=== PATIENT | male | born 1985 | race Hispanic/Latino ===

== ENCOUNTER 2017-09-04 21:18 | Emergency (ER) | payer BC ==
--- NOTE | 2017-09-04 21:53 | RAD ---
AP VIEW OF THE CHEST: 09/04/17 INDICATION: Chest pain. COMPARISON: Prior exam dated 01/18/11. FINDINGS: The lungs are clear. The cardiomediastinal silhouette is within normal limits. No acute osseous abnor mality is evident. IMPRESSION: No acute cardiopulmonary abnormality. POS: [facility]
[2017-09-04 22:04] LABS: #Basophils 0.1 thou/uL (0.0-0.2); #Eosinphils 0.4 thou/uL (0.0-0.7); #Lymphocytes 3.8 thou/uL (1.20-3.40); #Monocytes 0.9 thou/uL (0.11-0.59); #Neutrophils 6.5 thou/uL (1.40-6.50); %Basophils 0.7 % (0.0-1.0); %Eosinophils 3.4 % (0.0-10.0); %Lymphocytes 32.7 % (21.0-51.0); %Monocytes 7.7 % (0.0-10.0); %Neutrophils 55.5 % (42.0-75.0); Hemoglobin 15.5 g/dL (14.0-18.0); Mean Corpuscular HGB CONC 35.9 g/dL (32.0-36.0); Mean Corpuscular Hemoglobin 31.4 pg (27.0-31.0); Mean Corpuscular Volume 87.6 fl (80.0-94.0); Mean Platelet Volume 6.7 fL (7.4-10.4); Platelet Count 318 thou/uL (130-400); RBC Distribution Width 12.6 % (11.5-14.5); Red Blood Cell (RBC) Count 4.92 mill/uL (4.70-6.10); White Blood Cell (WBC) Count 11.7 thou/uL (4.8-10.8)
[2017-09-04 22:30] LABS: CKMB 0.9 ng/mL (0-6.6); Troponin I Less than 0.010 ng/mL (< 0.028)
--- NOTE | 2017-11-10 14:22 | EKG ---
Test Reason : Blood Pressure : / mmHG Vent. Rate : 086 BPM Atrial Rate : 086 BPM P-R Int : 140 ms QRS Dur : 098 ms QT Int : 356 ms P-R-T Axes : 029 000 022 degrees QTc Int : 426 ms Normal sinus rhythm Incomplete right bundle branch block Minimal voltage criteria for LVH, may be normal variant Borderline ECG Confirmed by GABBY REDDING, STEPHANIE Felder ([id number]), news video editor OLIVIA STEPHEN ([id number]) on 11/10/2017 2:21:34 PM Referred By: Confirmed By:STEPHANIE PIERRE MD
== END 2017-09-04 23:25 | disposition home or self-care (01) ==
LOC: ERS 21:18
DX: F43.0 Acute stress reaction (principal); R25.2 Cramp and spasm
CPT/HCPCS: 36415; 71045; 82550; 82553; 83880; 84484; 85025; 93005